=== PATIENT | female | born 1980 | race Caucasian/White ===

== ENCOUNTER 2024-07-20 14:37 | Emergency (ER) | payer OTHER ==
[~2024-07-20] VITALS: Ht 162.6 cm; Wt 81.8 kg
[2024-07-20 14:43] VITALS: TEMP 98.5
[2024-07-20] MEDS: ACETAMINOPHEN 325 MG TABLET PO ONE (15:10)
[2024-07-20] MEDS: DIAZEPAM 5 MG TABLET PO ONE (15:10)
[2024-07-20] MEDS: KETOROLAC TROMETHAMINE 30 MG/ML VIAL IM ONE (15:10)
[2024-07-20] MEDS: DEXAMETHASONE 4 MG TABLET PO ONE (15:10)
[2024-07-20 16:45] VITALS: BP 121/73; PULSE 85; RESP 18; O2SAT 97
== END 2024-07-20 17:31 | disposition home or self-care (01) ==
LOC: EMS 14:37
DX: M54.50 Low back pain, unspecified (principal)
CPT/HCPCS: 99284; 96372; J8540; J1885